=== PATIENT | male | born 1990 | race Caucasian/White ===

== ENCOUNTER 2017-05-27 22:01 | Emergency (ER) | payer BC ==
[~2017-05-27] VITALS: Ht 157.5 cm; Wt 108.9 kg
--- NOTE | ~2017-05-27 | EKG ---
PATIENT: SHELBY HAWKINS UNIT #: [id number] Ventricular Rate: 102 BPM Atrial Rate: 102 BPM P-R Interval: 128 ms QRS Duration: 92 ms Q-T Interval: 340 ms QTC Calculation(Bezet): 443 ms P [place]: 55 degrees Calculated R [place]: 39 degrees Calculated T [place]: 13 degrees Diagnosis Line: Sinus tachycardia Diagnosis Line: Otherwise normal ECG Diagnosis Line: No previous ECGs available Diagnosis Line: Confirmed by DORA KUMAR MD ([id number]) on Diagnosis Line: 05/28/2017 12:57:22 PM INTERPRETING MD: JOSÉ PEDROZA
--- NOTE | ~2017-05-27 | CR72 ---
[facility] A Service of [facility] [place] [facility] RADIOLOGY TEXT RESULTS PATIENT: SHELBY HAWKINS LOCATION: SED : [birth year] UNIT #: [id number] AGE: [address]: Myron Bhatti MD SEX: M ORDER DR: [id number] [place] [id number] E MR#: [id number] Acc #: [id number] NAME: SHELBY HAWKINS : 1990 SEX: M STUDY DATE/TIME: 05/27/2017 22:15 UNIT: SED ROOM: STUDY DESCRIPTION: CR Chest Single View Portable Attending Physician: Myron Bhatti M.D. Ordering Physician: Myron Bhatti M.D. Primary Care Physician: Primary Care Physician No MEDICAL IMAGING REPORT This report is preliminary unless electronic signature is present. EXAM Portable chest 05/27/2017 HISTORY 27-year-old male with chest pain beginning tonight. COMPARISON None. FINDINGS Frontal chest demonstrates clear lungs. No pleural effusion or pneumothorax. Heart size is borderline. Mediastinum and pulmonary vasculature unremarkable. IMPRESSION Borderline heart size. No other acute chest findings. Dictated by... Sahil Vaughn M.D. THIS IS AN ELECTRONICALLY VERIFIED REPORT Sahil Vaughn M.D. at 05/28/2017 4:04 PM KYLE/glenna TD: 05/28/2017 08:31 JOB #: [id number] MEDICAL IMAGING REPORT Page 1 of 1
--- NOTE | ~2017-05-27 | CT16 ---
[facility] A Service of [facility] RADIOLOGY TEXT RESULTS PATIENT: SHELBY HAWKINS LOCATION: SED : [birth year] UNIT #: [id number] AGE: [address]: Myron Bhatti MD SEX: M ORDER DR: [id number] [place] [id number] E MR#: [id number] Acc #: [id number] NAME: SHELBY HAWKINS : 1990 SEX: M STUDY DATE/TIME: 05/28/2017 0:33 UNIT: SED ROOM: STUDY DESCRIPTION: CT Angio Chest for PE Attending Physician: Myron Bhatti M.D. Ordering Physician: Myron Bhatti M.D. Primary Care Physician: No Primary Care Physician MEDICAL IMAGING REPORT This report is preliminary unless electronic signature is present. EXAM CTA chest PE protocol. INDICATIONS Chest pain radiating to the left shoulder today. PROCEDURE Contrast-enhanced CTA of the chest, attention on opacification of the pulmonary arteries. Coronal 3-D MIP sagittal reformatted images reconstructed and submitted. This CT exam was performed with one or more of the following radiation dose reduction techniques: automatic exposure control, adjustment of mA and/or kV according to patient size, and iterative reconstruction. COMPARISON None. FINDINGS No evidence for pulmonary embolus or acute aortic injury. No adenopathy. Cardiomegaly. Possible hepatic steatosis. No acute findings in the included upper abdomen. Lungs are clear. No aggressive appearing bone lesion. IMPRESSION 1. No acute findings. No evidence for pulmonary embolus. 2. Cardiomegaly. 3. Possible hepatic steatosis. Dictated by... Piyush Porras M.D. [facility] A Service of [facility] RADIOLOGY TEXT RESULTS PATIENT: SHELBY HAWKINS LOCATION: SED : [birth year] UNIT #: [id number] AGE: [address]: Myron Bhatti MD SEX: M ORDER DR: THIS IS AN ELECTRONICALLY VERIFIED REPORT Piyush Porras M.D. at 05/28/2017 9:53 PM NISHA/devon TD: 05/28/2017 10:05 JOB #: [id number] MEDICAL IMAGING REPORT Page 1 of 1
[~2017-05-27 22:01] MED LIST: IBUPROFEN800 MG PO; LORTAB 7.5-5001 TAB PO; ULTRAM PO
[2017-05-27] MEDS ORDERED: NO MEDICATIONS (22:15)
[2017-05-27 23:51] LABS: BASOPHIL# 0.1 X10e3 (0-0.3); BASOPHIL% 1.2 % (0-2.5); DIFF IND NO; EOSINOPHIL# 0.1 X10e3 (0-0.7); EOSINOPHIL% 0.9 % (0.0-7.0); HEMOGLOBIN 16.2 gm/dL (13.0-16.0); LYMPHOCYTE# 2.4 X10e3 (1.0-3.5); LYMPHOCYTE% 24.8 % (17.0-45.0); MEAN CELL VOLUME 89.5 FL (83-96); MEAN CORPUSCULAR HEMOGLOBIN 30.2 PG (28-34); MEAN CORPUSCULAR HGB CONC 33.7 g/dL (30-36); MEAN PLATELET VOLUME 8.7 FL (6.5-11.5); MONOCYTE# 1.2 X10e3 (0-1.0); MONOCYTE% 12.3 % (3.0-12.0); NEUTROPHIL% 60.8 % (40-75); PLATELET COUNT 319 X10e3 (140-420); RED BLOOD COUNT 5.36 X10e (3.90-5.60); RED CELL DISTRIBUTION WIDTH 13.2 % (11.0-15.5); WHITE BLOOD COUNT 9.8 X10e3 (4.0-10.5)
[2017-05-27 23:53] LABS: PROTHROMBIN TIME (PATIENT) 11.8 SECONDS (9.5-12.4)
[2017-05-28 00:01] LABS: ALBUMIN SERUM 4.5 g/dL (3.5-5.0); BILIRUBIN,TOTAL 0.6 mg/dL (0.2-2.0); BUN/CREATININE RATIO 8.75; CALCIUM SERUM 9.4 mg/dL (8.4-10.2); CREATININE SERUM 0.8 mg/dL (0.6-1.4); GLOM FILT RATE Estimated 124.2 mL/min (>60); PARTIAL THROMBOPLASTIN TIME 27.9 SECONDS (25.6-38.1); POTASSIUM 3.3 mmol/L (3.5-5.1); PROTEIN TOTAL SERUM 7.7 g/dL (6.0-8.3)
[2017-05-28 00:15] LABS: POC - CKMB <1.0 ng/mL (0.0-7.9); POC - TROPONIN <0.05 ng/mL (<=0.05)
[2017-05-28 01:18] LABS: AMPHETAMINE NEG (NEG); BARBITURATES NEG (NEG); BENZODIAZEPINES NEG (NEG); COCAINE NEG (NEG); MARIJUANA NEG (NEG); OPIATES NEG (NEG); TRICYCLIC ANTIDEPRESSANTS NEG (NEG); U METHADONE NEG (NEG)
[2017-05-28 01:41] LABS: POC - CKMB <1.0 ng/mL (0.0-7.9); POC - TROPONIN <0.05 ng/mL (<=0.05)
== END 2017-05-28 02:18 | disposition home or self-care (01) ==
LOC: SED 22:01
DX: M94.0 Chondrocostal junction syndrome [Tietze] (principal)
CPT/HCPCS: 36415; 71010; 71275; 80053; 80307; 82553; 84484; 85025; 85379; 85610; 85730; 93005; 96360; 99285; Q9967